=== PATIENT | female | born 1960 | race American Indian/Alaskan Native ===

== ENCOUNTER 2020-06-08 14:11 | Observation (INO) | payer MEDICARE, OTHER ==
[2020-06-08] MEDS ORDERED: SODIUM CHLORIDE 0.9% 1000 ML 1,000 ML IV ONE (14:25)
[2020-06-08] MEDS ORDERED: SODIUM CHLORIDE 0.9% 500 ML 500 ML IV ONE (14:38)
--- NOTE | 2020-06-08 14:38 | Emergency Department Report ---
ED General Adult HPI - General Chief complaint: Syncope Stated complaint: HYPOTENSION Time Seen by Provider: 06/08/20 14:24 Source: patient, EMS Mode of arrival: Stretcher Limitations: No Limitations - History of Present Illness Initial comments: This is a 59-year old female who ordinarily receives her care in the [facility] system. She had what sounds like a laminectomy in mid April. She states she has a history of hypertension. She has no history of VTE. She states that she was feeling somewhat nauseated this morning but did not vomit. She was going downstairs when she had a syncopal episodes. She states that she was told that she passed out completely. She denies any physical injury secondary to the fall. She does not complain of acute shortness of breath nor chest pain. He does not complain of acute back pain nor leg pain. She denied any changes. She was found to have a blood pressure in the 70s in the field and 88 systolic on arrival. She states that she has never passed out before. She has an AICD she states secondary to "congestive heart failure". I assume that she has a low EF in that case. She is morbidly obese. -: Gradual, minutes(s) Associated Symptoms: denies other symptoms (Except as above described) Treatments Prior to Arrival: other (Takes amlodipine, sotalol, carvedilol) - Related Data Allergies Allergy/AdvReac Type Severity Reaction Status Date / Time No Known Allergies Allergy Unverified 06/08/20 14:36 ED Review of Systems ROS: Stated complaint: HYPOTENSION Other details as noted in HPI ED Past Medical Hx - Past Medical History Previous Medical History?: Yes Hx Hypertension: Yes Hx Congestive Heart Failure: Yes Additional medical history: Pacemaker, sarcoidosis - Surgical History Past Surgical History?: Yes Additional Surgical History: back surgery - Social History Smoking Status: Never Smoker Substance Use Type: None ED Physical Exam - General Limitations: Physical Limitation General appearance: alert, in no apparent distress - Head Head exam: Present: atraumatic, normocephalic - Eye Eye exam: Present: normal appearance. Absent: scleral icterus - ENT ENT exam: Present: mucous membranes moist - Neck Neck exam: Present: normal inspection. Absent: tenderness, meningismus - Respiratory Respiratory exam: Present: normal lung sounds bilaterally. Absent: respiratory distress - Cardiovascular Cardiovascular Exam: Present: regular rate, normal rhythm. Absent: systolic murmur, diastolic murmur, rubs, gallop - GI/Abdominal GI/Abdominal exam: Present: soft, normal bowel sounds. Absent: distended, tenderness, guarding, rebound - Extremities Exam Extremities exam: Present: normal inspection, normal capillary refill. Absent: calf tenderness - Back Exam Back exam: Present: normal inspection - Neurological Exam Neurological exam: Present: alert, oriented X3, CN II-XII intact. Absent: motor sensory deficit - Psychiatric Psychiatric exam: Present: normal affect, normal mood - Skin Skin exam: Present: warm, dry, intact, normal color. Absent: rash ED Course Vital Signs 06/08/20 06/08/20 06/08/20 14:25 14:26 14:30 Temperature 98 F Pulse Rate 55 L 57 L 59 L Respiratory 16 12 16 Rate Blood Pressure 89/45 Blood Pressure 88/46 [Left] O2 Sat by Pulse 97 96 Oximetry 06/08/20 06/08/20 06/08/20 15:00 15:30 16:00 Temperature Pulse Rate 61 66 Respiratory 31 H 31 H Rate Blood Pressure 106/52 106/52 114/42 Blood Pressure [Left] O2 Sat by Pulse 96 95 97 Oximetry - Reevaluation(s) Reevaluation #1: D-dimer is almost 1300. Creatinine is 1.5. No contraindication for CT angiogram which she is clinically indicated in the setting. It will be ordered. Dr. Orr is aware. 06/08/20 16:21 ED Medical Decision Making - Lab Data Result diagrams: 06/08/20 14:34 06/08/20 14:34 Laboratory Results - last 24 hr 06/08/20 06/08/20 06/08/20 14:34 14:34 14:34 WBC 6.9 RBC 3.48 L Hgb 9.9 L Hct 30.3 MCV 87 MCH 28 MCHC 33 RDW 15.7 H Plt Count 243 Lymph % (Auto) 35.5 H [place] % (Auto) 11.0 H Eos % (Auto) 8.5 H Baso % (Auto) 0.8 Lymph # (Auto) 2.5 [place] # (Auto) 0.8 Eos # (Auto) 0.6 H Baso # (Auto) 0.1 Seg Neutrophils % 44.2 Seg Neutrophils # 3.1 PT 13.9 INR 1.05 APTT 33.2 Sodium 139 Potassium 4.2 Chloride 103.7 Carbon Dioxide 21 L Anion Gap 19 BUN 18 H Creatinine 1.5 H Estimated GFR 43 BUN/Creatinine Ratio 12 Glucose 98 Calcium 9.0 Magnesium 1.60 L Total Bilirubin Direct Bilirubin Indirect Bilirubin AST ALT Alkaline Phosphatase Total Creatine Kinase 60 CK-MB (CK-2) 1.2 CK-MB (CK-2) Rel Index 2.0 Troponin T < 0.010 NT-Pro-B Natriuret Pep Total Protein Albumin Albumin/Globulin Ratio 06/08/20 14:34 WBC RBC Hgb Hct MCV MCH MCHC RDW Plt Count Lymph % (Auto) [place] % (Auto) Eos % (Auto) Baso % (Auto) Lymph # (Auto) [place] # (Auto) Eos # (Auto) Baso # (Auto) Seg Neutrophils % Seg Neutrophils # PT INR APTT Sodium Potassium Chloride Carbon Dioxide Anion Gap BUN Creatinine Estimated GFR BUN/Creatinine Ratio Glucose Calcium Magnesium Total Bilirubin < 0.20 Direct Bilirubin < 0.2 Indirect Bilirubin 0.0 AST 10 ALT 8 Alkaline Phosphatase 94 Total Creatine Kinase CK-MB (CK-2) CK-MB (CK-2) Rel Index Troponin T NT-Pro-B Natriuret Pep 493.6 Total Protein 6.3 Albumin 3.3 L Albumin/Globulin Ratio 1.1 Laboratory Results - last 24 hr 06/08/20 06/08/20 06/08/20 14:34 14:34 14:34 WBC 6.9 RBC 3.48 L Hgb 9.9 L Hct 30.3 MCV 87 MCH 28 MCHC 33 RDW 15.7 H Plt Count 243 Lymph % (Auto) 35.5 H [place] % (Auto) 11.0 H Eos % (Auto) 8.5 H Baso % (Auto) 0.8 Lymph # (Auto) 2.5 [place] # (Auto) 0.8 Eos # (Auto) 0.6 H Baso # (Auto) 0.1 Seg Neutrophils % 44.2 Seg Neutrophils # 3.1 PT 13.9 INR 1.05 APTT 33.2 D-Dimer 1289.65 H Sodium 139 Potassium 4.2 Chloride 103.7 Carbon Dioxide 21 L Anion Gap 19 BUN 18 H Creatinine 1.5 H Estimated GFR 43 BUN/Creatinine Ratio 12 Glucose 98 Calcium 9.0 Magnesium 1.60 L Total Bilirubin Direct Bilirubin Indirect Bilirubin AST ALT Alkaline Phosphatase Total Creatine Kinase 60 CK-MB (CK-2) 1.2 CK-MB (CK-2) Rel Index 2.0 Troponin T < 0.010 NT-Pro-B Natriuret Pep Total Protein Albumin Albumin/Globulin Ratio 06/08/20 14:34 WBC RBC Hgb Hct MCV MCH MCHC RDW Plt Count Lymph % (Auto) [place] % (Auto) Eos % (Auto) Baso % (Auto) Lymph # (Auto) [place] # (Auto) Eos # (Auto) Baso # (Auto) Seg Neutrophils % Seg Neutrophils # PT INR APTT D-Dimer Sodium Potassium Chloride Carbon Dioxide Anion Gap BUN Creatinine Estimated GFR BUN/Creatinine Ratio Glucose Calcium Magnesium Total Bilirubin < 0.20 Direct Bilirubin < 0.2 Indirect Bilirubin 0.0 AST 10 ALT 8 Alkaline Phosphatase 94 Total Creatine Kinase CK-MB (CK-2) CK-MB (CK-2) Rel Index Troponin T NT-Pro-B Natriuret Pep 493.6 Total Protein 6.3 Albumin 3.3 L Albumin/Globulin Ratio 1.1 Critical care attestation.: If time is entered above; I have spent that time in minutes in the direct care of this critically ill patient, excluding procedure time. ED Disposition Clinical Impression: Syncope and collapse, Hypotensive episode, Chronic renal insufficiency, stage I Cardiomyopathy Qualifiers: Cardiomyopathy type: unspecified Qualified Code(s): I42.9 - Cardiomyopathy, unspecified Disposition: -09 OP ADMIT IP TO THIS HOSP Is pt being admited?: Yes Does the pt Need Aspirin: Yes Condition: Stable Instructions: Syncope (ED) Referrals: AUREA PEREZ MD [Primary Care Provider] - 3-5 Days Time of Disposition: 16:22
[2020-06-08 15:03] LABS: Basophils # (Auto) 0.1 K/mm3 (0.0-0.1); Basophils % (Auto) 0.8 % (0.0-1.8); Eosinophils # (Auto) 0.6 K/mm3 (0.0-0.4); Eosinophils % (Auto) 8.5 % (0.0-4.3); Hematocrit 30.3 % (30.3-42.9); Hemoglobin 9.9 gm/dl (10.1-14.3); Lymphocytes # (Auto) 2.5 K/mm3 (1.2-5.4); Lymphocytes % (Auto) 35.5 % (13.4-35.0); Mean Corpuscular HGB Conc 33 % (30-34); Mean Corpuscular Volume 87 fl (79-97); Monocytes # (Auto) 0.8 K/mm3 (0.0-0.8); Platelet Count 243 K/mm3 (140-440); Red Blood Count 3.48 M/mm3 (3.65-5.03); Red Cell Distribution Width 15.7 % (13.2-15.2)
[2020-06-08 15:22] LABS: Creatine Kinase MB 1.2 ng/mL (0.0-4.0)
[2020-06-08 15:23] LABS: Alanine Aminotransferase 8 units/L (7-56); Albumin 3.3 g/dL (3.9-5)
[2020-06-08 15:24] LABS: BUN/Creatinine Ratio 12; Blood Urea Nitrogen 18 mg/dL (7-17); Hemolysis Index 36
[2020-06-08 15:29] LABS: Bilirubin,Direct < 0.2 mg/dL (0-0.2)
[2020-06-08] MEDS ORDERED: ALBUTEROL 2.5 MG/3 ML NEBU IH PRN (15:58)
[2020-06-08] MEDS ORDERED: ACETAMINOPHEN 325 MG TAB PO PRN (15:58)
[2020-06-08] MEDS ORDERED: ONDANSETRON 4 MG/2 ML INJ IV PRN (15:58)
--- NOTE | 2020-06-08 15:58 | XRay Report ---
CHEST 1 VIEW INDICATION / CLINICAL INFORMATION: Syncope. COMPARISON: None available. FINDINGS: SUPPORT DEVICES: Left-sided pacemaker HEART / MEDIASTINUM: No significant abnormality. LUNGS / PLEURA: No significant pulmonary or pleural abnormality. No pneumothorax. ADDITIONAL FINDINGS: No significant additional findings. IMPRESSION: 1. No acute findings. Signer Name: Michael Garsia MD FACR Signed: 06/08/2020 3:54 PM Workstation Name: [id number]
[2020-06-08] MEDS ORDERED: SODIUM CHLORIDE 0.9% 1000 ML 1,000 ML IV SCH (16:00)
--- NOTE | 2020-06-08 16:00 | History and Physical Report ---
History of Present Illness Chief complaint: I passed out History of present illness: 59 YO Female with Obesity, HTN, Sarcoidosis, CHF, Cardiomyopathy S/P Pacemaker Placement, LDD presents to ED for evaluation. Patient states that she was in her usual state of health this morning and experienced a sudden onset of nausea and subsequent loss of consciousness. Patient was found down by family members. EMS was notified and upon arrival the patient was found to be in distress with a systolic blood pressure in the 70s and a heart rate in the 50s and subsequently transported to [facility] for further evaluation and care of the aforementioned symptoms. Patient seen and evaluated in the emergency department. All lab and imaging studies reviewed. Patient found to have symptomatic bradycardia, as well as volume depletion, acute kidney injury. Patient found to have a blood pressure of 88/46 in the emergency department. Patient treated with IV fluid resuscitation therapy with improvement in symptoms. Patient placed in observation status and admitted to telemetry monitoring for further evaluation due to increased risk of cardiac decompensation. Pacemaker interrogation ordered in the emergency department. Patient denies fever, chills, chest pain, palpitations, productive cough, skin rash, recent ill contacts, unilateral leg pain, calf swelling, prolonged travel/immobility, individual/family history of DVT/PE/bleeding/blood clotting disorders. No prior admission for review. No medication listed for recon ciliation at the time of my admission. Past History Past Medical History: heart failure, hypertension, other (See HPI) Past Surgical History: Other (Pacemaker placement, back surgery) Social history: , lives with family. denies: smoking, alcohol abuse, prescription drug abuse Family history: hypertension Medications and Allergies Allergies Allergy/AdvReac Type Severity Reaction Status Date / Time No Known Allergies Allergy Unverified 06/08/20 14:36 Active Meds: Active Medications Acetaminophen (Tylenol) 650 mg PO Q4H PRN PRN Reason: Pain MILD(1-3)/Fever >100.5/AGOSTO Albuterol (Proventil) 2.5 mg IH Q4HRT PRN PRN Reason: Shortness Of Breath Sodium Chloride (Nacl 0.9% 1000 Ml) 1,000 mls @ 125 mls/hr IV DIRECT REYNA Magnesium Oxide (Mag-Ox) 400 mg PO QDAY REYNA Ondansetron HCl (Zofran) 4 mg IV Q8H PRN PRN Reason: Nausea And Vomiting Sodium Chloride (Sodium Chloride Flush Syringe 10 Ml) 10 ml IV BID REYNA Sodium Chloride (Sodium Chloride Flush Syringe 10 Ml) 10 ml IV PRN PRN PRN Reason: LINE FLUSH Review of Systems Constitutional: no weight loss, no weight gain, no fever, no sweats Ears, nose, mouth and throat: no ear pain, no tinnitis, no decreased hearing, no nose pain, no nasal congestion Breasts: no change in shape, no swelling Cardiovascular: syncope, lightheadedness, no chest pain, no palpitations, no rapid/irregular heart beat, no shortness of breath, no dyspnea on exertion, no claudication, no leg edema Respiratory: no cough, no cough with sputum, no hemoptysis Gastrointestinal: no abdominal pain, no vomiting, no diarrhea, no constipation, no change in bowel habits Genitourinary Female: no pelvic pain, no flank pain, no menorrhagia Rectal: no pain, no incontinence, no bleeding Musculoskeletal: no neck stiffness, no shooting arm pain, no arm numbness/tingling, no shooting leg pain Integumentary: no rash, no redness, no sores, no jaundice, no boils Neurological: syncope, no transient paralysis, no paralysis, no weakness, no numbness, no tingling Psychiatric: no anxiety, no memory loss, no sleep disturbances, no hypersomnia, no change in libido, no suicidal ideation Endocrine: no cold intolerance, no polyphagia, no excessive thirst, no polydipsia, no nocturia, no flushing, no other Hematologic/Lymphatic: no easy bruising, no easy bleeding, no lymphedema Allergic/Immunologic: no persistent infections Exam - Constitutional Vitals: Temp Pulse Resp BP Pulse Ox 98 F 61 31 H 106/52 96 06/08/20 14:25 06/08/20 15:00 06/08/20 15:00 06/08/20 15:00 06/08/20 15:00 General appearance: Present: mild distress, obese - EENT Eyes: Present: PERRL ENT: hearing intact, clear oral mucosa - Neck Neck: Present: supple, normal ROM - Respiratory Respiratory effort: normal Respiratory: bilateral: CTA - Cardiovascular Heart Sounds: Present: S1 & S2. Absent: rub, click - Extremities Extremities: pulses symmetrical, No edema Peripheral Pulses: within normal limits - Abdominal General gastrointestinal: Present: soft, non-tender, non-distended, normal bowel sounds Female genitourinary: Present: normal - Integumentary Integumentary: Present: clear, warm, dry - Musculoskeletal Musculoskeletal: gait normal, strength equal bilaterally - Psychiatric Psychiatric: appropriate mood/affect, intact judgment & insight - Neurologic Neurologic: CNII-XII intact, moves all extremities HEART Score - HEART Score Troponin: Troponin T < 0.010 ng/mL (0.00-0.029) 06/08/20 14:34 Results - Labs CBC & Chem 7: 06/08/20 14:34 06/08/20 14:34 Labs: Abnormal lab results 06/08/20 06/08/20 06/08/20 Range/Units 14:34 14:34 14:34 RBC 3.48 L (3.65-5.03) M/mm3 Hgb 9.9 L (10.1-14.3) gm/dl RDW 15.7 H (13.2-15.2) % Lymph % (Auto) 35.5 H (13.4-35.0) % [place] % (Auto) 11.0 H (0.0-7.3) % Eos % (Auto) 8.5 H (0.0-4.3) % Eos # (Auto) 0.6 H (0.0-0.4) K/mm3 Carbon Dioxide 21 L (22-30) mmol/L BUN 18 H (7-17) mg/dL Creatinine 1.5 H (0.6-1.2) mg/dL Magnesium 1.60 L (1.7-2.3) mg/dL Albumin 3.3 L (3.9-5) g/dL Assessment and Plan - Patient Problems (1) Symptomatic bradycardia Current Visit: Yes Status: Acute Plan to address problem: Admit to telemetry, supportive care, monitor blood pressure every shift, hold antihypertensive therapy. Pacemaker interrogation ordered in the emergency depa rtment. (2) DEANNA (acute kidney injury) Current Visit: Yes Status: Acute Plan to address problem: IV fluid resuscitation therapy, BMP, monitor urine output every shift, repeat BMP in a.m. to monitor serum creatinine. (3) Volume depletion Current Visit: Yes Status: Acute Plan to address problem: IV fluid resuscitation therapy, monitor urine output every shift, avoid nephrotoxic agents. Encourage free water intake. (4) Cardiomyopathy Current Visit: Yes Status: Acute Qualifiers: Cardiomyopathy type: unspecified Qualified Code(s): I42.9 - Cardiomyopathy, unspecified Plan to address problem: Supportive care, admit to telemetry, D-dimer, CTA of the chest. (5) Syncope and collapse Current Visit: Yes Status: Acute Plan to address problem: Supportive care, neuro check, IV fluid resuscitation therapy. Monitor blood pressure every shift. (6) DVT prophylaxis Current Visit: Yes Status: Acute Plan to address problem: SCD to bilateral lower extremities while in bed, patient is ambulatory.
[2020-06-08 16:15] LABS: INR 1.05 (0.87-1.13)
[2020-06-08 16:16] LABS: Partial Thromboplastin Time 33.2 Sec. (24.2-36.6)
[2020-06-08] MEDS ORDERED: ASPIRIN 81 MG TAB CHEW PO ONE (16:22)
--- NOTE | 2020-06-08 17:30 | Cat Scan Report ---
CTA CHEST WITH IV CONTRAST INDICATION / CLINICAL INFORMATION: Syncope, elevated dimer. TECHNIQUE: Axial CT images were obtained through the chest after injection of 100 cc Omnipaque 350 milligrams pe rcent IV contrast. 3 plane MIP and/or 3D reconstructions were produced. All CT scans at this location are performed using CT dose reduction for ALARA by means of automated exposure control. COMPARISON: None available. FINDINGS: PULMONARY ARTERIES: No pulmonary emboli. THORACIC AORTA: No significant abnormality. HEART: Mild cardiac enlargement is present.. CORONARY ARTERIES: No significant calcification. PLEURA: No pleural effusion. No pneumothorax. LYMPH NODES: No significant adenopathy. LUNGS: Faint parenchymal changes left base ADDITIONAL FINDINGS: None. UPPER ABDOMEN: No acute findings. SKELETAL STRUCTURES: No significant osseous abnormality. IMPRESSION: 1. No CT evidence for pulmonary embolism. 2. Minimum parenchymal changes left lower lobe. Signer Name: Ced Kaufman MD Signed: 06/08/2020 5:26 PM Workstation Name: [id number]
[2020-06-08] MEDS: MAGNESIUM OXIDE 400 MG TAB PO SCH (22:05)
[2020-06-09 05:54] LABS: BUN/Creatinine Ratio 15; Blood Urea Nitrogen 17 mg/dL (7-17); Calcium 9.1 mg/dL (8.4-10.2); Hemolysis Index 7
--- NOTE | 2020-06-09 08:35 | Progress Note ---
Assessment and Plan Assessment and plan: 59 YO Female with Obesity, HTN, Sarcoidosis, CHF, Cardiomyopathy S/P Pacemaker Placement, LDD presents to ED for evaluation. Patient states that she was in her usual state of health this morning and experienced a sudden onset of nausea and subsequent loss of consciousness. Patient was found down by family members. EMS was notified and upon arrival the patient was found to be in distress with a systolic blood pressure in the 70s and a heart rate in the 50s and subsequently transported to [facility] for further evaluation and care of the aforementioned symptoms. Patient seen and evaluated in the emergency department. All lab and imaging studies reviewed. Patient found to have symptomatic bradycardia, as well as volume depletion, acute kidney injury. Patient found to have a blood pressure of 88/46 in the emergency department. Patient treated with IV fluid resuscitation therapy with improvement in symptoms. Patient placed in observation status and admitted to telemetry monitoring for further evaluation due to increased risk of cardiac decompensation. Pacemaker interrogation ordered in the emergency department. Patient denies fever, chills, chest pain, palpitations, productive cough, skin rash, recent ill contacts, unilateral leg pain, calf swelling, prolonged travel/immobility, individual/family history of DVT/PE/bleeding/blood clotting disorders. No prior admission for review. No medication listed for reconciliation at the time of my admission. (1) Symptomatic bradycardia Current Visit: Yes Status: Acute Plan to address problem: -Currently bradycardia resolved -Will be seen by cardiology (2) DEANNA (acute kidney injury) Current Visit: Yes Status: Acute Plan to address problem: -Patient was given IV fluids and resolved (3) Volume depletion Current Visit: Yes Status: Acute Plan to address problem: -Was given IV fluids and resolved (4) Cardiomyopathy Current Visit: Yes Status: Acute Qualifiers: Cardiomyopathy type: unspecified Qualified Code(s): I42.9 - Cardiomyopathy, unspecified Plan to address problem: -Cardiology consulted -CTA chest was done and negative (5) Syncope and collapse Current Visit: Yes Status: Acute Plan to address problem: -IV fluids and resolved (6) DVT prophylaxis Current Visit: Yes Status: Acute Plan to address problem: On heparin History Interval history: Patient was seen and evaluated this morning Hospitalist Physical - Physical exam Narrative exam: Not in cardiopulmonary distress. The patient is obese Vital signs as documented. Head exam is unremarkable. No scleral icterus . Neck is without jugular venous distension, thyromegaly, or carotid bruits. Lungs are clear to auscultation. Cardiac exam reveals regular rate and Rhythm. Abdominal exam reveals normal bowel sounds, nontender, no organomegaly. Extremities are nonedematous and both femoral and pedal pulses are normal. [employer] APPRENTICE: Alert and oriented 3. No focal weakness. - Constitutional Vitals: Temp Pulse Resp BP Pulse Ox 98.2 F 89 18 156/69 100 06/09/20 07:47 06/09/20 07:47 06/09/20 07:47 06/09/20 07:47 06/09/20 07:47 General appearance: Present: mild distress, obese HEART Score - HEART Score Troponin: Troponin T < 0.010 ng/mL (0.00-0.029) 06/08/20 14:34 Results - Labs CBC & Chem 7: 06/08/20 14:34 06/09/20 04:28 Labs: Laboratory Last Values WBC 6.9 K/mm3 (4.5-11.0) 06/08/20 14:34 RBC 3.48 M/mm3 (3.65-5.03) L 06/08/20 14:34 Hgb 9.9 gm/dl (10.1-14.3) L 06/08/20 14:34 Hct 30.3 % (30.3-42.9) 06/08/20 14:34 MCV 87 fl (79-97) 06/08/20 14:34 MCH 28 pg (28-32) 06/08/20 14:34 MCHC 33 % (30-34) 06/08/20 14:34 RDW 15.7 % (13.2-15.2) H 06/08/20 14:34 Plt Count 243 K/mm3 (140-440) 06/08/20 14:34 Lymph % (Auto) 35.5 % (13.4-35.0) H 06/08/20 14:34 [place] % (Auto) 11.0 % (0.0-7.3) H 06/08/20 14:34 Eos % (Auto) 8.5 % (0.0-4.3) H 06/08/20 14:34 Baso % (Auto) 0.8 % (0.0-1.8) 06/08/20 14:34 Lymph # (Auto) 2.5 K/mm3 (1.2-5.4) 06/08/20 14:34 [place] # (Auto) 0.8 K/mm3 (0.0-0.8) 06/08/20 14:34 Eos # (Auto) 0.6 K/mm3 (0.0-0.4) H 06/08/20 14:34 Baso # (Auto) 0.1 K/mm3 (0.0-0.1) 06/08/20 14:34 Seg Neutrophils % 44.2 % (40.0-70.0) 06/08/20 14:34 Seg Neutrophils # 3.1 K/mm3 (1.8-7.7) 06/08/20 14:34 PT 13.9 Sec. (12.2-14.9) 06/08/20 14:34 INR 1.05 (0.87-1.13) 06/08/20 14:34 APTT 33.2 Sec. (24.2-36.6) 06/08/20 14:34 D-Dimer 1289.65 ng/mlDDU (0-234) H 06/08/20 14:34 Sodium 144 mmol/L (137-145) 06/09/20 04:28 Potassium 4.3 mmol/L (3.6-5.0) 06/09/20 04:28 Chloride 106.9 mmol/L (98-107) 06/09/20 04:28 Carbon Dioxide 22 mmol/L (22-30) 06/09/20 04:28 Anion Gap 19 mmol/L 06/09/20 04:28 BUN 17 mg/dL (7-17) 06/09/20 04:28 Creatinine 1.1 mg/dL (0.6-1.2) 06/09/20 04:28 Estimated GFR > 60 ml/min 06/09/20 04:28 BUN/Creatinine Ratio 15 % 06/09/20 04:28 Glucose 77 mg/dL (65-100) 06/09/20 04:28 Calcium 9.1 mg/dL (8.4-10.2) 06/09/20 04:28 Magnesium 1.60 mg/dL (1.7-2.3) L 06/08/20 14:34 Total Bilirubin < 0.20 mg/dL (0.1-1.2) 06/08/20 14:34 Direct Bilirubin < 0.2 mg/dL (0-0.2) 06/08/20 14:34 Indirect Bilirubin 0.0 mg/dL 06/08/20 14:34 AST 10 units/L (5-40) 06/08/20 14:34 ALT 8 units/L (7-56) 06/08/20 14:34 Alkaline Phosphatase 94 units/L (35-129) 06/08/20 14:34 Total Creatine Kinase 60 units/L (30-135) 06/08/20 14:34 CK-MB (CK-2) 1.2 ng/mL (0.0-4.0) 06/08/20 14:34 CK-MB (CK-2) Rel Index 2.0 (0-4) 06/08/20 14:34 Troponin T < 0.010 ng/mL (0.00-0.029) 06/08/20 14:34 NT-Pro-B Natriuret Pep 493.6 pg/mL (0-900) 06/08/20 14:34 Total Protein 6.3 g/dL (6.3-8.2) 06/08/20 14:34 Albumin 3.3 g/dL (3.9-5) L 06/08/20 14:34 Albumin/Globulin Ratio 1.1 % 06/08/20 14:34 Sandra/IV: Voiding Method Toilet IV Catheter Type [Left Hand] Peripheral IV Active Medications - Current Medications Current Medications: Generic Name Dose Route Start Last Admin Trade Name Freq PRN Reason Stop Dose Admin Acetaminophen 650 mg 06/08/20 15:58 Tylenol PO Q4H PRN Pain MILD(1-3)/Fever >100.5/AGOSTO Albuterol 2.5 mg 06/08/20 15:58 Proventil IH Q4H PRN Shortness Of Breath Sodium Chloride 1,000 mls @ 125 mls/hr 06/08/20 16:00 06/08/20 16:56 Nacl 0.9% 1000 Ml IV 125 mls/hr DIRECT REYNA Administration Magnesium Oxide 400 mg 06/08/20 17:00 06/08/20 22:05 Mag-Ox PO 400 mg QDAY REYNA Administration Ondansetron HCl 4 mg 06/08/20 15:58 Zofran IV Q8H PRN Nausea And Vomiting Sodium Chloride 10 ml 06/08/20 22:00 06/08/20 22:50 Sodium Chloride Flush Syringe 10 Ml IV 10 ml BID REYNA Administration Sodium Chloride 10 ml 06/08/20 15:58 Sodium Chloride Flush Syringe 10 Ml IV PRN PRN LINE FLUSH
[2020-06-09] MEDS: MAGNESIUM OXIDE 400 MG TAB PO SCH (09:43)
--- NOTE | 2020-06-09 13:02 | Discharge Summary ---
Providers - Providers Date of Admission: 06/08/20 17:44 Date of discharge: 06/10/20 Attending physician: WICHO WALDRON MD 06/08/20 16:46 Consult to Physician [CONS] Routine Comment: Consulting Provider: THOMAS JACKSON Physician Instructions: Reason For Exam: cardiomyopathy Primary care physician: AUREA PEREZ Hospitalization Reason for admission: Syncope, hypotension, bradycardia Condition: Stable Hospital course: 59 YO Female with Obesity, HTN, Sarcoidosis, CHF, Cardiomyopathy S/P Pacemaker Placement, LDD presents to ED for evaluation. Patient states that she was in her usual state of health this morning and experienced a sudden onset of nausea and subsequent loss of consciousness. Patient was found down by family members. EMS was notified and upon arrival the patient was found to be in distress with a systolic blood pressure in the 70s and a heart rate in the 50s and subsequ ently transported to [facility] for further evaluation and care of the aforementioned symptoms. Patient seen and evaluated in the emergency department. All lab and imaging studies reviewed. Patient found to have symptomatic bradycardia, as well as volume depletion, acute kidney injury. Patient found to have a blood pressure of 88/46 in the emergency department. Patient treated with IV fluid resuscitation therapy with improvement in symptoms. Patient placed in observation status and admitted to telemetry monitoring for further evaluation due to increased risk of cardiac decompensation. Pacemaker interrogation ordered in the emergency department. Patient denies fever, chills, chest pain, palpitations, productive cough, skin rash, recent ill contacts, unilateral leg pain, calf swelling, prolonged travel/immobility, individual/family history of DVT/PE/bleeding/blood clotting disorders. No prior admission for review. No medication listed for reconciliation at the time of my admission. (1) Symptomatic bradycardia Current Visit: Yes Status: Acute Plan to address problem: -Currently bradycardia resolved -Was seen by cardiology and patient had follow-up at [facility] and had work-up there and recommend to continue follow-up care (2) DEANNA (acute kidney injury) Current Visit: Yes Status: Acute Plan to address problem: -Patient was given IV fluids and resolved (3) Volume depletion Current Visit: Yes Status: Acute Plan to address problem: -Was given IV fluids and resolved (4) Cardiomyopathy Current Visit: Yes Status: Acute Qualifiers: Cardiomyopathy type: unspecified Qualified Code(s): I42.9 - Cardiomyopathy, unspecified Plan to address problem: -Cardiology consulted -CTA chest was done and negative -ICD interrogated and was functioning normal (5) Syncope and collapse Current Visit: Yes Status: Acute Plan to address problem: -Resolved Disposition: DC-01 TO HOME OR SELFCARE Time spent for discharge: 32 minutes - Discharge Diagnoses (1) DEANNA (acute kidney injury) Status: Acute (2) Cardiomyopathy Status: Chronic Qualifiers: Cardiomyopathy type: unspecified Qualified Code(s): I42.9 - Cardiomyopathy, unspecified (3) Hypotensive episode Status: Resolved (4) Symptomatic bradycardia Status: Acute (5) Syncope and collapse Status: Acute Core Measure Documentation - Palliative Care Palliative Care/ Comfort Measures: Not Applicable - Core Measures Any of the following diagnoses?: none Exam - Physical Exam Narrative exam: Not in cardiopulmonary distress. The patient is obese Vital signs as documented. Head exam is unremarkable. No scleral icterus . Neck is without jugular venous distension, thyromegaly, or carotid bruits. Lungs are clear to auscultation. Cardiac exam reveals regular rate and Rhythm. Abdominal exam reveals normal bowel sounds, nontender, no organomegaly. Extremities are nonedematous and both femoral and pedal pulses are normal. 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 No focal weakness. - Constitutional Vitals: Temp Pulse Resp BP Pulse Ox 98.7 F 80 18 129/56 99 06/09/20 11:20 06/09/20 11:20 06/09/20 11:20 06/09/20 11:20 06/09/20 11:20 Plan Activity: no restrictions Weight Bearing Status: Full Weight Bearing Diet: regular Follow up with: AUREA PEREZ MD [Primary Care Provider] - 3-5 Days Prescriptions: carvediloL [Coreg] 3.125 mg PO BID #60 tablet Losartan [Cozaar] 12.5 mg PO QDAY #30 tablet Sotalol HCl [Sotalol] 120 mg PO BID #60 tablet
[2020-06-09] MEDS: HEPARIN 5,000 UNIT/1 ML VIAL SUB-Q SCH ×2 (13:05→22:55)
--- NOTE | 2020-06-09 16:06 | Consultation ---
History of Present Illness Consult date: 06/09/20 Requesting physician: CATHRYN MARCELO Consult reason: other (cardiomyopathy) History of present illness: Pt is a 59 y.o. AA female with a hx of sarcoidosis, CMP s/p ICD, chronic HFrEF, and HTN who presented for further eval following syncopal episode. No injury. Pt states she was carrying a laundry basket down a set of stairs at home when she blacked out suddenly. Syncope preceded by lightheadedness and nausea. Pt reports she has frequent syncopal episodes, approximately once every 2 weeks. She states she has had a full work-up performed by her primary Survey Analyst and has not been informed of any significant findings. Pt denies any additional cardiac complaints. No recent fever/chills. Pt was noted to be hypotensive with SBP in the 80s upon arrival, as well as bradycardic in the 50s. BP improved s/p IVF resuscitation. Past History Past Medical History: heart failure, hypertension, other (CMP, sarcoidosis) Past Surgical History: Other (ICD) Social history: , lives with family. denies: smoking, alcohol abuse Medications and Allergies Allergies Allergy/AdvReac Type Severity Reaction Status Date / Time No Known Allergies Allergy Unverified 06/08/20 14:36 Home Medications Medication Instructions Recorded Confirmed Last Taken Type Promethazine [Phenergan] 25 mg PO Q4H PRN 06/09/20 06/09/20 Unknown History amLODIPine 5 mg PO DAILY 06/09/20 06/09/20 Unknown History tiZANidine [Zanaflex 4mg TAB] 4 mg PO BID PRN 06/09/20 06/09/20 Unknown History traMADoL [Ultram 50 MG tab] 50 mg PO TID PRN 06/09/20 06/09/20 Unknown History Active Meds: Active Medications Acetaminophen (Tylenol) 650 mg PO Q4H PRN PRN Reason: Pain MILD(1-3)/Fever >100.5/AGOSTO Albuterol (Proventil) 2.5 mg IH Q4H PRN PRN Reason: Shortness Of Breath Heparin Sodium (Porcine) (Heparin) 5,000 unit SUB-Q Q8HR [facility] Last Admin: 06/09/20 13:05 Dose: 5,000 unit Documented by: Magnesium Oxide (Mag-Ox) 400 mg PO QDAY [facility] Last Admin: 06/09/20 09:43 Dose: 400 mg Documented by: Ondansetron HCl (Zofran) 4 mg IV Q8H PRN PRN Reason: Nausea And Vomiting Sodium Chloride (Sodium Chloride Flush Syringe 10 Ml) 10 ml IV BID [facility] Last Admin: 06/09/20 09:43 Dose: 10 ml Documented by: Sodium Chloride (Sodium Chloride Flush Syringe 10 Ml) 10 ml IV PRN PRN PRN Reason: LINE FLUSH Review of Systems Constitutional: no fever, no chills, no sweats Ears, nose, mouth and throat: no nasal congestion, no sore throat Cardiovascular: syncope, lightheadedness, no chest pain, no orthopnea, no palpitations, no edema, no shortness of breath, no dyspnea on exertion, no paroxysmal nocturnal dyspnea, no claudication Respiratory: no cough, no shortness of breath, no dyspnea on exertion Gastrointestinal: nausea, no abdominal pain, no vomiting, no diarrhea, no constipation Genitourinary Female: no flank pain, no dysuria Musculoskeletal: no neck stiffness, no neck pain, no myalgias Integumentary: no rash, no wounds Neurological: syncope, no head injury, no paralysis, no weakness, no parathesias, no numbness, no tingling, no seizures, no vertigo, no headaches Endocrine: no cold intolerance, no heat intolerance, no polydipsia, no polyuria Hematologic/Lymphatic: no easy bruising, no easy bleeding Allergic/Immunologic: no urticaria Physical Examination Last Vital Signs Temp 98.7 F 06/09/20 11:20 Pulse 80 06/09/20 11:20 Resp 18 06/09/20 11:20 BP 129/56 06/09/20 11:20 Pulse Ox 99 06/09/20 11:20 General appearance: no acute distress HEENT: Positive: EOMI, Normocephaly, Mucus Membranes Moist Neck: Positive: neck supple, trachea midline. Negative: JVD/HJR Cardiac: Positive: Reg Rate and Rhythm, S1/S2, Bradycardia Lungs: Positive: clear to auscultation Neuro: Positive: Grossly Intact Abdomen: Positive: Soft, Active Bowel Sounds. Negative: Tender Skin: Negative: Rash Musculoskeletal: No Pain Extremities: Present: upper extr. pulses, lower extr. pulses. Absent: edema Results 06/08/20 14:34 06/09/20 04:28 Coagulation 06/08/20 Range/Units 14:34 PT 13.9 (12.2-14.9) Sec. INR 1.05 (0.87-1.13) APTT 33.2 (24.2-36.6) Sec. Comprehensive Metabolic Panel 06/09/20 Range/Units 04:28 Sodium 144 (137-145) mmol/L Potassium 4.3 (3.6-5.0) mmol/L Chloride 106.9 (98-107) mmol/L Carbon Dioxide 22 (22-30) mmol/L BUN 17 (7-17) mg/dL Creatinine 1.1 (0.6-1.2) mg/dL Glucose 77 (65-100) mg/dL Calcium 9.1 (8.4-10.2) mg/dL - Imaging and Cardiology Echo: report reviewed Cardiac cath: report reviewed EKG: report reviewed, image reviewed - EKG Interpretation EKG: no acute changes EKG interpretations - Telemetry EKG Rhythm: Sinus Rhythm - EKG Sinus rhythms and dysrhythmias: sinus rhythm Repolarization changes or abnormalities: nonspecific abnormality, ST segment, and/or T wave Assessment and Plan Suspect recurrent syncope in the setting of volume depletion. Encouraged incre ased PO fluid intake. Continue IVFs for now. Replete Mg. Would also hold home Amlodipine for now. May resume as an outpatient. Will monitor overnight. Anticipate discharge in AM from a Cardiology perspective if vitals remain stable. Recommend follow-up with Primary Survey Analyst within 1-2 weeks. Pt seen in conjunction with Dr. Mixon, who agrees with the assessment and plan of care. - Patient Problems (1) Syncope and collapse Current Visit: Yes Status: Acute (2) Hypotensive episode Current Visit: Yes Status: Resolved (3) Chronic HFrEF (heart failure with reduced ejection fraction) Current Visit: Yes Status: Chronic (4) Cardiomyopathy Current Visit: Yes Status: Chronic Qualifiers: Cardiomyopathy type: unspecified Qualified Code(s): I42.9 - Cardiomyopathy, unspecified (5) ICD (implantable cardioverter-defibrillator) in place Current Visit: Yes Status: Chronic (6) Sarcoidosis Current Visit: Yes Status: Chronic (7) HTN (hypertension) Current Visit: Yes Status: Chronic Qualifiers: Hypertension type: essential hypertension Qualified Code(s): I10 - Essential (primary) hypertension (8) Anemia Current Visit: Yes Status: Acute Plan to address problem: stable (9) Elevated d-dimer Current Visit: Yes Status: Acute Plan to address problem: chest CTA neg for PE
[2020-06-10] MEDS: HEPARIN 5,000 UNIT/1 ML VIAL SUB-Q SCH (06:15)
[2020-06-10] MEDS: MAGNESIUM OXIDE 400 MG TAB PO SCH (09:27)
[2020-06-10] MEDS ORDERED: carvediloL 3.125 MG TAB PO SCH (10:00)
[2020-06-10] MEDS ORDERED: LOSARTAN 25 MG TAB PO SCH (10:00)
[2020-06-10 10:53] VITALS: BP 155/71
--- NOTE | 2020-06-10 13:12 | Progress Note ---
Assessment and Plan ICD interrogation noted - normal device function. Suspect recurrent syncope in the setting of volume depletion. Encouraged increased PO fluid intake. Ok to continue home Sotalol. Resume Coreg at reduced dose of 3.125mg BID. Will also continue Losartan 12.5mg daily. Currently stable cardiac status. Pt may be discharged from a Cardiology perspective. Recommend follow-up with Primary Buildings And Grounds Superintendent @ [place] within 1-2 weeks. Pt seen in conjunction with Dr. Escobar, who agrees with the assessment and plan of care. - Patient Problems (1) Syncope and collapse Status: Chronic (2) Hypotensive episode Status: Resolved (3) Non-ischemic cardiomyopathy Status: Chronic (4) ICD (implantable cardioverter-defibrillator) in place Status: Chronic (5) Chronic HFrEF (heart failure with reduced ejection fraction) Status: Chronic (6) Sarcoidosis Status: Chronic (7) Normal coronary arteries Status: Chronic Plan to address problem: on cath 12/2018 (8) HTN (hypertension) Status: Chronic Qualifiers: Hypertension type: essential hypertension Qualified Code(s): I10 - Essential (primary) hypertension (9) Anemia Status: Acute Plan to address problem: stable (10) Elevated d-dimer Status: Acute Plan to address problem: chest CTA neg for PE (11) H/O supraventricular tachycardia Status: Chronic Plan to address problem: h/o atrial tach - on Sotalol Subjective Date of service: 06/10/20 Principal diagnosis: Recurrent Syncope Interval history: Pt resting comfortably in bed upon exam. She denies any cardiac complaints overnight or this AM. BP better s/p IVFs. Tele reviewed - SR w/no acute events noted. Objective Vital Signs Temp Pulse Pulse Resp BP Pulse Ox 06/10/20 10:53 72 155/71 100 06/10/20 10:52 73 155/71 06/10/20 10:00 75 18 97 06/10/20 08:14 95 06/10/20 07:36 98.3 F 75 18 133/60 98 06/10/20 04:01 98.8 F 77 18 147/64 96 06/10/20 04:00 77 06/09/20 23:43 98.6 F 73 18 131/84 96 06/09/20 22:00 83 18 97 06/09/20 20:30 98 06/09/20 20:00 77 06/09/20 19:55 98.3 F 83 18 133/57 99 06/09/20 16:22 99.9 F H 88 18 140/58 98 - Physical Examination HEENT: Positive: EOMI, Normocephaly, Mucus Membranes Moist Neck: Positive: neck supple, trachea midline. Negative: JVD/HJR Neuro: Positive: Grossly Intact Abdomen: Positive: Soft, Active Bowel Sounds. Negative: Tender Skin: Negative: Rash Musculoskeletal: No Pain Extremities: Present: upper extr. pulses, lower extr. pulses. Absent: edema - Imaging and Cardiology EKG: report reviewed, image reviewed Pharmacologic stress test: report reviewed (12/2018 - small defect in RCA territory (worse on stress than rest images, likely related to GI attenuation); small reversible defect in mid anterior wall consistent with possible ischemia in LAD terriroty; no ECG evidence of ischemia; LVEF 31% w/global hypokinesis) Echo: report reviewed (05/01/2020 - EF 35-40%; grade I diastolic dysfxn; LV mildly dilated; mod MR; trace TR) Cardiac cath: report reviewed (12/2018 - angiographically normal coronaries; mod- severely reduced LVEF, 35-40%; normal LVEDP, 6 mmHg) - Telemetry EKG Rhythm: Sinus Rhythm - EKG Sinus rhythms and dysrhythmias: sinus rhythm Repolarization changes or abnormalities: nonspecific abnormality, ST segment, and/or T wave
== END 2020-06-10 12:25 | disposition home or self-care (01) ==
LOC: ED 14:11 → 4A 17:44
PROVIDERS: ADMIT Internal Medicine; ATTEND Internal Medicine
DX: N17.9 Acute kidney failure, unspecified (principal); E86.9 Volume depletion, unspecified; I42.9 Cardiomyopathy, unspecified; I42.8 Other cardiomyopathies; I13.0 Hypertensive heart and chronic kidney disease with heart failure and stage 1 through stage 4 chronic kidney disease, or unspecified chronic kidney disease; I50.22 Chronic systolic (congestive) heart failure; N18.1 Chronic kidney disease, stage 1; R00.1 Bradycardia, unspecified; R55 Syncope and collapse; E66.9 Obesity, unspecified; D86.9 Sarcoidosis, unspecified; I95.9 Hypotension, unspecified; R74.8 Abnormal levels of other serum enzymes; Z98.890 Other specified postprocedural states; Z95.0 Presence of cardiac pacemaker; Z68.42 Body mass index [BMI] 45.0-49.9, adult
CPT/HCPCS: 36415; 71045; 71275; 80048; 80076; 82550; 82553; 83735; 83880; 84484; 85025; 85379; 85610; 85730; 93005; 94760; 96360; 96361; 96372; 99284; G0378; J1644; J7030; J7040; Q9967